=== PATIENT | female | born 1985 | race Hispanic/Latino ===

== ENCOUNTER 2024-05-21 01:42 | Inpatient (IN) | payer OTHER ==
--- OUTSIDE RECORDS SUMMARY | 2024-05-21 01:46 | XMS REPORT | Continuity of Care Document ---
Author Name Unknown Address [address] [facility] [address] [place] [address] [facility] Address [address] [facility] [address] [place] [address] Care Team Providers Care Drywall Foreman Name Role Phone DOMINGUEZ QUESADA Primary Care Physician Unavailab NEREIDA Alonzo Attending Clinician Unavailable NEREIDA SHOOK Attending Clinician Unavailable BROOKLYN SANDERS Attending Clinician Unavailable Nereida Shook MD Attending Clinician [phone] Attending Clinician Unavailable BLANCA BAUTISTA Attending Clinician Unava ilwilfredo GC_SWHAOMC_Black_D Attending Clinician Unavailab DR DOMINGUEZ Garcia Attending Clinician Unavailab pablo [phone] Attending Clinician Unavailable NIKKI BRIGGS Attending Clinician Unavailable Kathy Mandel Attending Clinician [phone] Nikki Madrigal Attending Clinician [phone] Doctor Unassigned, [facility] Attending Clinician U ISIDRO Moreno Attending Clinician DURAN Krishna Attending Clinician Unavailab shah GC_SWHAOMC_Black_D Admitting Clinician DR DOMINGUEZ Velez Admitting Clinician Awa shah Payers Payer Name Policy Type Policy Number Effective Date Expirati on Date Source CIGNA II [id number] 2017 00:00:00 BLUE ESSENTIALS [id number] 2019 00:00[place] [id number] DE[place]EN[place] 2 [id number] 2022 00:00:00 [facility] [id number] 2023 00:00:00 [facility] [id number] 2021 00:00:00 [employer] [id number] Problems Condition Name Condition Details Condition Category Status Onset Date Resolution Date Last Treatment Date Treating Clinician Comments Source Endometrio sis Endometrio sis Disease Active 07-05 00:00: 00 Toyin Seybold - Externa l Allergic rhinitis Allergic rhinitis Disease Active 07-05 00:00: 00 Toyin Seybold - Externa l Migraine Migraine Disease Active 07-05 00:00: 00 Toyin Seybold - Externa l Prediabete s Prediabete s Disease Active 07-05 00:00: 00 Toyin Seybold - Externa l Prediabete s Prediabete s Disease Active 08-13 00:00: 00 [facility] Obesity Obesity Disease Active 08-13 00:00: 00 [facility] Multiparit y Multiparit y Disease Resolve d 2014-04 00:00: 00 2024-01-26 00:00:00 2024-01-26 14:57:11 [facility] Admission for sterilizat ion Admission for sterilizat ion Disease Resolve d 2014-04 00:00: 00 2024-01-26 00:00:00 2024-01-26 15:07:59 [facility] Menorrhagi a with regular cycle Menorrhagi a with regular cycle Disease Resolve d 2014-04 00:00: 00 2024-01-26 00:00:00 2024-01-26 14:57:11 [facility] Abnormal thyroid function test Abnormal thyroid function test Disease Resolve d 08-13 00:00: 00 2024-01-26 00:00:00 2024-01-26 14:57:11 [facility] Allergies, Adverse Reactions, Alerts Allergy Name Allergy Type Status Severity Reaction(s) Onset Date Inactive Date Treating Clinician Comments Source NO KNOWN ALLERGIE S Drug Class Active [facility] Social History Social Habit Start Date Stop Date Quantity Comments Source [facility] to SARS-CoV-2 (event) Not sure [facility] Alcoholic beverage intake 2024-01-26 00:00:00 2024-01-26 00:00:00 0 /d [facility] History of Social function 2024-01-26 00:00:00 2024-01-26 00:00:00 [facility] Alcohol intake 2023-07-06 00:00:00 2023-07-06 00:00:00 Current drinker of alcohol (finding) Toyin Diaz - External Education - What is the highest level of school you have completed or the highest degree you have received? 2023-07-06 00:00:00 2023-07-06 00:00:00 Bachelor's degree (e.g., BA, AB, BS) Toyin Fletcher External Alcohol Comment 2023-07-06 00:00:00 2023-07-06 00:00:00 socially Toyin Turner Tobacco use and exposure 2015-03-24 00:00:00 2015-03-24 00:00:00 Smokeless tobacco non-user [facility] Sex Assigned At 1985 00:00:00 1985 00:00:00 Toyin Turner Smoking Status Start Date Stop Date Source Never smoked tobacco [facility] Medications Ordered Medication Name Filled Medication Name Start Date Stop Date Current Medication? Ordering Clinician Indication Dosage Frequency Signature (SIG) Comments Components Source BLISOVI FE 04/29, 28, 1 mg-20 mcg (21)/75 mg (7) tablet 2023-04 15:10: 00 01-25 00:00 :00 No TAKE 1 TABLET BY MOUTH EVERY DAY SKIP PLACEBO AND TAKE CONTINUOUS LY [facility] semaglutide (OZEMPIC) 0.25 mg or 0.5 mg(2 mg/1.5 mL) PnIj 2023-04 14:36: 12 Yes INJECT 0.25 MG UNDER THE SKIN EVERY WEEK FOR 4 WEEKS, THEN 0.5 MG EVERY WEEK FOR 4 WEEKS [facility] valACYclovi r 1 gram tablet 2023-04 14:36: 12 Yes TAKE 1 TABLET BY MOUTH THREE TIMES DAILY FOR 7 DAYS PRN SHINGLES [facility] metFORMIN (GLUCOPHAGE ) 1,000 mg tablet 2023-04 14:36: 01-25 00:00 :00 No 1000mg Take 1,000 mg by mouth 2 (two) times daily. [facility] norethindro ne-ethinyl estradiol-i saúl (MINASTRIN 24 FE) 1 mg-20 mcg(24) /75 mg (4) per tablet 2023-04 14:36: 01-25 00:00 :00 No 1{tbl} Take 1 Tab by mouth daily. [facility] fluticasone propionate 50 mcg/actuati on nasal spray 2023-04 14:36: 01-25 00:00 :00 No 1{spray } Use 1 [place] in each nostril. [facility] norethindro ne-e.estrad ioL-iron (BLISOVI FE ,) 1 mg-20 mcg (21)/75 mg (7) tablet 2023-04 00:00: 00 Yes [id number] 1{tbl} Take 1 tablet by mouth in the morning. TAKE 1 TABLET BY MOUTH EVERY DAY SKIP PLACEBO AND TAKE CONTINUOUS LY [facility] diclofenac 75 mg EC tablet 07-09 00:00: 00 Yes 75mg Take 1 tablet by mouth. [facility] Ibuprofen (MOTRIN OR) 07-05 16:23: 37 07-05 00:00 :00 No 800mg Take 800 mg by mouth as needed. Toyin evans Bupropion HCL XL 150 MG OR TB24 07-05 07:41: 56 07-05 00:00 :00 No TAKE ONE TABLET BY MOUTH DAILY X 4 WEEKE THEN START THE 300MG Toyin evans Semaglutide -WEGOVY-Shree ght Management 0.25 MG/0.5ML Subcutaneou s Solution Auto-inject or 07-05 00:00: 00 Yes [id number] 104 .25mg Inject 0.25 mg into the skin once a week. Toyin evans Diclofenac Sodium 75 MG oral Tablet Delayed Response 07-05 00:00: 00 Yes [id number] 75mg Q.5D Take 1 tablet (75 mg total) by mouth 2 times daily as needed (pain). Toyin evans Tirzepatide -Weight Management (Zepbound) 2.5 MG/0.5ML subcutaneou s Solution Auto-inject or 05-31 00:00: 00 07-05 00:00 :00 No [id number] 2.5mg Inject 0.5 mL (2.5 mg total) into the skin once a week. Toyin evans OZEMPIC (0.25 or 0.5 mg/dose) 2 mg/3 mL SQ Solution Pen-Injecto r 05-30 16:29: 39 05-30 00:00 :00 No INJECT 0.25 MG UNDER THE SKIN EVERY WEEK FOR 4 WEEKS, THEN 0.5 MG EVERY WEEK FOR 4 WEEKS Toyin evans Ibuprofen (MOTRIN OR) 05-30 16:10: 36 Yes 800mg Take 800 mg by mouth as needed. Toyin evans FLUTICASONE PROPIONATE, NASAL, 50 MCG/ACT nasal Suspension 05-30 16:09: 26 Yes 50ug 1 spray (50 mcg total) by nasal route as needed. Toyin evans Bupropion HCL XL 150 MG OR TB24 05-30 16:09: 26 Yes TAKE ONE TABLET BY MOUTH DAILY X 4 WEEKE THEN START THE 300MG Toyin evans Valacyclovi r HCl 1 g oral Tablet 05-30 16:09: 26 Yes TAKE 1 TABLET BY MOUTH THREE TIMES DAILY FOR 7 DAYS PRN SHINGLES Toyin evans Tirzepatide -Weight Management (Zepbound) 2.5 MG/0.5ML subcutaneou s Solution Auto-inject or 05-30 00:00: 00 Yes [id number] 2.5mg Inject 0.5 mL (2.5 mg total) into the skin once a week. Toyin evans Ibuprofen (MOTRIN) 800 MG oral Tablet 05-30 00:00: 00 Yes [id number] 800mg Q.25D Take 1 tablet (800 mg total) by mouth every 6 hours as needed for pain. Toyin evans Semaglutide -Weight Management (Wegovy) 0.25 MG/0.5ML subcutaneou s Solution Auto-inject or 05-30 00:00: 00 05-30 00:00 :00 No [id number] .25mg Inject 0.25 mg into the skin once a week. Toyin evans Blisovi FE 04/29 1-20 MG-MCG oral Tablet 2022-04 00:00: 00 Yes TAKE 1 TABLET BY MOUTH EVERY DAY SKIP PLACEBO AND TAKE CONTINUOUS LY Toyin evans valACYclovi r 1 gram tablet 07-17 00:00: 00 07-17 00:00 :00 No [id number] 1g Take 1 tablet by mouth 3 (three) times daily for 7 days. [facility] gabapentin 100 mg capsule 07-17 00:00: 00 07-17 00:00 :00 No [id number] 100mg Take 1 capsule by mouth 3 (three) times daily for 7 days. [facility] WEGOVY 2.4 mg/0.75 mL PnIj SC injection 06-29 00:00: 00 01-25 00:00 :00 No INJECT 2.4 MG SUBQ ONCE WEEEKLY [facility] elagolix (ORILISSA) 200 mg Tab 6 00:00: 00 01-25 00:00 :00 No 1 tablet [facility] metFORMIN (GLUCOPHAGE ) 1,000 mg tablet 05-07 19:06: 11 Yes 1000mg Take 1,000 mg by mouth 2 (two) times daily. [facility] norethindro ne-ethinyl estradiol-i saúl (MINASTRIN 24 FE) 1 mg-20 mcg(24) /75 mg (4) per tablet 05-07 19:06: 11 Yes 1{tbl} Take 1 Tab by mouth daily. [facility] fluticasone (FLONASE) 50 mcg/actuati on nasal spray 05-07 19:06: 11 Yes 1{spray } Use 1 [place] in each nostril as needed. [facility] cephALEXin (KEFLEX) 500 mg capsule 05-07 00:00: 00 01-25 00:00 :00 No [id number] 500mg Take 1 capsule by mouth 4 (four) times daily. [facility] buPROPion XL 300 mg 24 hr tablet 05-01 00:00: 00 01-25 00:00 :00 No [facility] ketorolac 10 mg tablet 10-29 00:00: 00 01-25 00:00 :00 No 10mg Take 1 tablet by mouth every 6 (six) hours as needed for Pain (scale 7-10). [facility] ketorolac 10 mg tablet 2- 00:00: 00 01-25 00:00 :00 No 10mg Take 1 tablet by mouth every 6 (six) hours as needed for Pain (scale 7-10). [facility] ondansetron (ZOFRAN, SHIELAI DE,) 4 mg tablet 2-07 00:00: 00 01-25 00:00 :00 No 4mg Take 1 tablet by mouth every 8 (eight) hours as needed for Nausea and Vomiting (N/V). [facility] pantoprazol e (PROTONIX) 40 mg EC tablet 2-07 00:00: 00 01-25 00:00 :00 No 40mg Take 1 tablet by mouth daily. [facility] NUVARING 0.12-0.015 mg/24 hr vaginal insert 08-03 00:00: 00 01-25 00:00 :00 No [facility] ibuprofen (MOTRIN) 800 mg tablet 08-02 00:00: 00 01-25 00:00 :00 No [facility] methocarbam ol (ROBAXIN) 500 mg tablet 08-02 00:00: 00 01-25 00:00 :00 No [facility] Junel Fe 24 1 mg-20 mcg (24)/75 mg (4) tablet Take 1 tablet every day by oral route. Septemberl Fe 24 1 mg-20 mcg (24)/75 mg (4) tablet Take 1 tablet every day by oral route. No 1 Q1D Junel Fe 24 1 mg-20 mcg (24)/75 mg (4) tablet Take 1 tablet every day by oral route. [facility] Immunizations Ordered Immunization Name Filled Immunization Name Date Status Comments Source Influenza Virus Vaccine, No Preserv, age 6 months and up Unknown Completed Toyin santorobold - External MMR- Measles, Mumps, Rubella Unknown Completed Toyin Granadosold - External Td(adult) unspecified formulation Unknown Completed Toyin Granadosold - External Tdap- (Boostrix, Adacel) Unknown Completed Toyin Granadosold - External Varicella Vaccine Unknown Completed Bhavin Granadosold - External Influenza Virus Vaccine, No Preserv, age 6 months and up Unknown Completed Toyin Mullins eybold - External MMR- Measles, Mumps, Rubella Unknown Completed Toyin Granadosold - External Td(adult) unspecified formulation Unknown Completed Toyin Pottsybold - External Tdap- (Boostrix, Adacel) Unknown Completed Toyin Granadosold - External Varicella Vaccine Unknown Completed Bhavin pacheco Seybold - External Vital Signs Vital Name Observation Time Observation Value Comments S brandon Systolic blood pressure 2024-01-26 19:42:00 131 mm[Hg] [facility] Diastolic blood pressure 2024-01-26 19:42:00 83 mm[Hg] [facility] Heart rate 2024-01-26 19:42:00 84 /min [facility] Body temperature 2024-01-26 19:42:00 36.83 Caryl [facility] Respiratory rate 2024-01-26 19:42:00 18 /min [facility] Body height 2024-01-26 19:42:00 160 cm [facility] Body weight 2024-01-26 19:42:00 119.659 kg [facility] BMI 2024-01-26 19:42:00 46.73 kg/m2 [facility] Body temperature 2023-07-06 21:04:00 36.94 Caryl Toyin Seybold - External Respiratory rate 2023-07-06 21:04:00 20 /min Toyin Seybold - External Body height 2023-07-06 21:04:00 160 cm Racheal ey Seybold - External Body weight 2023-07-06 21:04:00 124.286 kg Racheal ey Seybold - External BMI 2023-07-06 21:04:00 48.54 kg/m2 Racheal ey Seybold - External Oxygen saturation in Arterial blood by Pulse oximetry 2023-07-06 21:04:00 100 /min Toyin meaghano ld - External Systolic blood pressure 2023-05-30 22:02:00 116 mm[Hg] Toyin Seybo ld - External Diastolic blood pressure 2023-05-30 22:02:00 74 mm[Hg] Toyin Seybo ld - External Heart rate 2023-05-30 22:02:00 78 /min Neil y Seybold - External Body temperature 2023-05-30 22:02:00 36.89 Caryl Toyin Seybold - External Respiratory rate 2023-05-30 22:02:00 18 /min Toyin Seybold - External Body height 2023-05-30 22:02:00 160 cm Racheal ey Seybold - External Body weight 2023-05-30 22:02:00 122.641 kg Racheal ey Seybold - External BMI 2023-05-30 22:02:00 47.89 kg/m2 Racheal santoro Seybold - External Oxygen saturation in Arterial blood by Pulse oximetry 2023-05-30 22:02:00 99 /min Toyin Nicolas ld - External BP Diastolic 2022-04-07 00:00:00 74 mm[Hg] [facility] Height 2022-04-07 00:00:00 63 [in_i] [facility] BMI (Body Mass Index) 2022-04-07 00:00:00 46.9 kg/m2 [facility] BP Systolic 2022-04-07 00:00:00 130 mm[Hg] [facility] Body Weight 2022-04-07 00:00:00 265 [lb_av] [facility] Systolic blood pressure 2021-07-17 15:25:00 102 mm[Hg] [facility] Diastolic blood pressure 2021-07-17 15:25:00 71 mm[Hg] [facility] Heart rate 2021-07-17 15:25:00 80 /min [facility] Body temperature 2021-07-17 15:25:00 36.78 Caryl [facility] Respiratory rate 2021-07-17 15:25:00 18 /min [facility] Body height 2021-07-17 15:25:00 160 cm [facility] Body weight 2021-07-17 15:25:00 110.179 kg [facility] BMI 2021-07-17 15:25:00 43.03 kg/m2 [facility] Oxygen saturation in Arterial blood by Pulse oximetry 2021-07-17 15:25:00 99 /min [facility] Procedures Procedure Date / Time Performed Performing Clinicia n Source ASSIGNMENT OF BENEFITS 2021-07-17 15:11:22 Docto r Unassigned, [facility] Ligation of Bilateral Fallopian Tubes 2014-04-10 00:00:00 [facility] Medical Caesarean Section 2011-04-10 00:00:00 [facility] Plan of Care Planned Activity Planned Date Details Comments Source Diagnostic Test Pending 2022-04-07 00:00:00 Weight of 24 hour Specimen [code = 3153-4] [facility] Diagnostic Test Pending 2022-04-07 00:00:00 Cytomegalovirus Ab [Titer] in Serum or Plasma by Latex agglutination [code = 5121-9] [facility] Encounters Start Date/Time End Date/Time Encounter Type Admission Type Attending [facility] Care Facility Care Department Encounter ID Source 2021-02-07 07:58:07 Emergency [facility] [id number] [facility] 2024-04-07 00:00:00 2024-04-07 00:00:00 Outpatient BROOKLYN SANDERS [id number] [facility] 2024-01-27 00:00:00 2024-01-27 00:00:00 Outpatient BROOKLYN SANDERS [id number] [facility] 2024-01-26 15:00:00 2024-01-26 15:08:53 Outpatient R NEREIDA SHOOK VIVIAN [facility] [id number] [facility] 2024-01-26 15:00:00 2024-01-26 15:08:53 Office Visit Nereida Shook [facility] [id number] [facility] 2023-12-30 00:00:00 2023-12-30 00:00:00 Outpatient BROOKLYN SANDERS [id number] [facility] 2023-11-01 00:00:00 2023-11-01 00:00:00 Outpatient BROOKLYN SANDERS [id number] [facility] 2023-10-06 09:45:00 2023-10-06 09:45:00 Outpatient BROOKLYN SANDERS [id number] [facility] 2023-08-31 00:00:00 2023-08-31 00:00:00 Outpatient BROOKLYN SANDERS [id number] [facility] 2023-07-29 00:00:00 2023-07-29 00:00:00 Outpatient BROOKLYN SANDERSSEY [id number] [facility] 2023-07-07 00:00:00 2023-07-07 00:00:00 Outpatient BROOKLYN SANDERS [id number] [facility] 2023-07-07 00:00:00 2023-07-07 00:00:00 Outpatient BROOKLYN SANDERS [id number] [facility] 2023-07-06 16:15:00 2023-07-06 16:15:00 Outpatient BROOKLYN SANDERS TOYIN [id number] [facility] 2023-06-11 00:00:00 2023-06-11 00:00:00 Outpatient BROOKLYN SANDERS TOYIN [id number] [facility] 2023-06-02 00:00:00 2023-06-02 00:00:00 Outpatient BROOKLYN SANDERS TOYIN [id number] [facility] 2023-06-01 08:15:00 2023-06-01 08:15:00 Outpatient KATE THAYERSEY [id number] [facility] 2023-05-30 16:00:00 2023-05-30 16:00:00 Outpatient MICHELEBLANCAMELANIE MUSE [id number] [facility] 2022-04-07 00:00:00 2022-04-07 00:00:00 Outpatient GC_[facility]_ Black_D [facility] [id number] [facility] 2022-04-07 00:00:00 2022-04-07 00:00:00 Outpatient GC_SWHAOMC_ Black_D [facility] PRIV [id number] [facility] 2022-04-07 00:00:00 2022-04-07 00:00:00 Fatemeh Terry MD: [place] [address] , Ph. [facility] - GC_SWHAOMC_ [facility] [id number] [facility] 2022-04-06 00:00:00 2022-04-06 00:00:00 Outpatient GC_SWHAOMC_ Black_D PRIV PRIV [id number] [facility] 2022-02-18 00:00:00 2022-02-18 00:00:00 Outpatient GC_SWH[facility]OMC_ Black_D PRIV PRIV [id number] [facility] 2021-07-23 10:54:00 2021-07-23 10:54:00 Outpatient Zuly GOMEZDOMINGUEZ MOSER [id number] [facility] [id number] [facility] 2021-07-17 10:20:00 2021-07-17 10:55:59 Outpatient NIKKI GARAY [facility] [id number] [facility] 2021-07-17 10:20:00 2021-07-17 10:55:59 Urgent Care Kathy Torres Rania [facility] [id number] [facility] 2021-07-17 00:00:00 2021-07-17 00:00:00 Orders Only Doctor Unassigned, [facility] [id number] [facility] 2020-11-13 16:40:00 2020-11-13 16:40:00 Outpatient ISIDRO PRESCOTT [facility] [id number] [facility] 2020-05-07 19:00:00 2020-05-07 19:00:00 Outpatient R DURAN COLLADO [facility] [id number] [facility] Results Test Description Test Time Test Comments Results Resul t Comments Source SCR MAMM BILATERAL HARPREET CAD DIGITAL 2021-05-17 10:08:08 Name: Minoo : 1985 Sex: F - SCR MAMM BILATERAL HARPREET CAD DIGITALBILATERAL FIRST EVER DIGITAL SCREENING MAMMOGRAM 3D/2D WITH CAD: 05/12/2021LINICAL: Asymptomatic. Digital breast tomosynthesis was performed in addition to routine CC and MLO views. Current mammographic images were evaluated by [employer] CAD (computer-aided detection) software. No prior exams were available for comparison. The tissue of both breasts is predominantly fatty. There are benign calcifications in the left breast. No suspicious mass, architectural distortion, malignant type calcification, or lymph node abnormality detected. IMPRESSION: BENIGNThere is no mammographic evidence of malignancy. Resume annual screening mammography in one year. Ba Oliveira M.D. et/penrad:05/17/2021 10:08:08 Systems Engineering Manager: Kya Licea MM, [facility] Mammographyletter sent: BIRADS 1-2 Normal Mammogram BI-RADS: 2 Benign
[2024-05-21] MEDS ORDERED: ONDANSETRON 4 MG/2 ML VIAL ONE (02:27)
[2024-05-21] MEDS ORDERED: MORPHINE 4 MG/ML SYR ONE (02:27)
[2024-05-21] MEDS ORDERED: NA CHLORIDE 0.9% 1,000 ML ONE ×2 (02:27→06:23)
[2024-05-21 02:32] LABS: Absolute Basophils 0.1 K/uL (0-0.5); Absolute Eosinophils 0.1 K/uL (0-0.5); Absolute Monocytes 0.6 K/uL (0.1-1.3); Basophils % 0.5 % (0-1.3); Eosinophils % 0.6 % (0-4.4); Hemoglobin 12.9 g/dL (12.0-15.0); Lymphocytes % 13.4 % (15.3-44.8); MCH 27.2 pg (27.0-35.0); MCV 82.5 fL (80-100); MPV 8.6 fL (7.6-11.3); Monocytes % 4.2 % (3.3-12.3); Neutrophils % 81.3 % (41.7-73.7); Nucleated Red Blood Cells % 0.1 % (0-0); Platelets 330 thou/uL (152-406); RBC Red Blood Cell Count 4.73 M/uL (3.86-4.86); Red Cell Distribution Width 14.1 % (12.1-15.2)
[2024-05-21 02:44] LABS: ALT/SGPT 19 U/L (13-56); Albumin 3.6 g/dL (3.4-5.0); Albumin/Globulin Ratio 0.9 (1.1-1.8); Alkaline Phosphatase 72 U/L (45-117); Anion Gap 11.2 mEq/L (5.0-15.0); BUN Blood Urea Nitrogen 19 mg/dL (7-18); Bicarbonate 23 mEq/L (21-32); Bilirubin Total 0.7 mg/dL (0.2-1.0); Globulin 3.9 g/dL (2.3-3.5); Glomerular Filtration Rate 96 ml/min (=/>90); Glucose Level 142 mg/dL (74-106); Lipase 29 U/L (13-75); Potassium 4.2 mEq/L (3.5-5.1); Protein, Total 7.5 g/dL (6.4-8.2); Sodium Level 137 mEq/L (136-145)
[2024-05-21 02:45] LABS: AST/SGOT < 10 U/L (15-37)
[2024-05-21] MEDS ORDERED: FENTANYL CITR 100 MCG/2 ML ONE (03:09)
[2024-05-21] MEDS ORDERED: METOCLOPRAMIDE 10 MG/2mL INJ ONE (03:09)
--- NOTE | 2024-05-21 04:29 | RAD REPORT ---
CLINICAL HISTORY: RUQ/epigastric abdominal pain. COMPARISON: None. TECHNIQUE: US ABDOMEN LIMITED 05/21/2024 2:08 AM APARTMENT LEASING CONSULTANT FINDINGS: Liver is slightly echogenic. Portal vein is patent. Common bile duct measures 4.5 mm. Gallbladder is diffusely filled with gallstones. There is a reported positive sonographic Grace's sign. IMPRESSION: Extensive cholelithiasis with a positive sonographic Grace's sign. Electronically signed by: Laci Quiroz MD 05/21/2024 04:25 AM APARTMENT LEASING CONSULTANT RP Due to temporary technical issues with the PACS/Skedo scribe reporting system, reports are being signed by the in-house radiologist without review as a courtesy to ensure prompt reporting the interpreting radiologist is fully responsible for the content of the report. Transcribed Date/Time: 05/21/2024 4:29 AM
--- NOTE | 2024-05-21 04:31 | ER ---
Nurse's Notes [facility] Name: Minoo Bob Age: 39 yrs Sex: Female : 1985 Arrival Date: 05/21/2024 Time: 01:42 Bed 8 Private MD: Diagnosis: Cholelithiasis;Possible developing small bowel obstruction Presentation: 05/21 02:13 Chief complaint: Patient states: C/ O EPIGASTRIC PAIN, NAUSEA AND VOMITING. THE SECOND br2 TIME SHE THREW UP THERE WAS BLOOD. PT STATES THAT SHE HAS GALLSTONES BUT HASN'T HAD A FLARE UP IN A COUPLE YEARS. Coronavirus screen: Client denies travel out of the [place] in the last 14 days. Ebola Screen: Patient denies travel to an Ebola-affected area in the 21 days before illness onset. Initial Sepsis Screen: Does the patient meet any 2 criteria? No. Patient's initial sepsis screen is negative. Does the patient have a suspected source of infection? No. Patient's initial sepsis screen is negative. Risk Assessment: Do you want to hurt yourself or someone else? Patient reports no desire to harm self or others. Onset of symptoms was May 20, 2024 at 23:00. 02:13 Method Of Arrival: Ambulatory br2 02:13 Acuity: RENAE 3 br2 Historical: - Allergies: 02:17 No Known Allergies; br2 - Immunization history:: Adult Immunizations up to date. - Infectious Disease History:: Denies. - Social history:: Smoking status: Patient denies any tobacco usage or history of. Screenin:[address] [facility] ED Fall Risk Assessment (Adult) History of falling in the last 3 months, lg3 including since admission No falls in past 3 months (0 pts) Confusion or Disorientation No (0 pts) Intoxicated or Sedated No (0 pts) Impaired Gait No (0 pts) Mobility Assist Device Used No (0 pt) Altered Elimination No (0 pt) Score/Fall Risk Level 0 - 2 = Low Risk Oriented to surroundings, Maintained a safe environment, Educated pt \T\ family on fall prevention, incl call for assistance when getting out of bed, Assessed \T\ reinforced patient's understanding of fall precautions. Abuse screen: Denies threats or abuse. Denies injuries from another. Nutritional screening: No deficits noted. Tuberculosis screening: No symptoms or risk factors identified. Assessment: 02:33 General: Appears in no apparent distress. uncomfortable, Behavior is calm, cooperative. lg3 Pain: Complains of pain in epigastric area Pain radiates to back. Neuro: No deficits noted. Abad Agitation-Sedation Scale (RASS): 0 - Alert and Calm Level of Consciousness is awake, alert, obeys commands, Oriented to person, place, time, situation. Cardiovascular: No deficits noted. Denies chest pain, shortness of breath, Capillary refill < 3 seconds Clubbing of nail beds is absent JVD is absent Patient's skin is warm and dry. Respiratory: No deficits noted. Airway is patent Respiratory effort is even, unlabored, Respiratory pattern is regular, symmetrical. GI: Abdomen is round non-distended, obese, Bowel sounds present X 4 quads. Abd is soft X 4 quads Abdomen is tender to palpation in right upper quadrant and left upper quadrant Reports upper abdominal pain, epigastric pain, nausea, vomiting. : No signs and/or symptoms were reported regarding the genitourinary system. EENT: No deficits noted. No signs and/or symptoms were reported regarding the EENT system. Derm: No deficits noted. No signs and/or symptoms reported regarding the dermatologic system. Skin is intact, is healthy with good turgor, Skin is dry, Skin is normal, Skin temperature is warm. Musculoskeletal: No deficits noted. No signs and/or symptoms reported regarding the musculoskeletal system. Circulation, motion, and sensation intact. Range of motion: intact in all extremities. 03:13 Reassessment: Patient appears in no apparent distress at this time. No changes from lg3 previously documented assessment. Patient and/or family updated on plan of care and expected duration. Pain level reassessed. Patient is alert, oriented x 3, equal unlabored respirations, skin warm/dry/pink. Patient states symptoms have not improved. 04:25 General: patient reports 10/10 abdominal pain with no relief from previous medications lg3 administered. provider notified. no new orders recieved at this time . 04:49 Reassessment: Patient appears in no apparent distress at this time. No changes from lg3 previously documented assessment. Patient and/or family updated on plan of care and expected duration. Pain level reassessed. Patient is alert, oriented x 3, equal unlabored respirations, skin warm/dry/pink. 05:09 GI: Pt is actively vomiting bile, clear fluid. lg3 Vital Signs: 02:13 BP 150 / 80; Pulse 96; Resp 18; Temp 97.2(TE); Pulse Ox 100% on R/A; Weight 120.2 kg; br2 Height 5 ft. 3 in. ; Pain 10/10; 03:13 BP 151 / 87; Pulse 79; Resp 17 S; Pulse Ox 98% on R/A; lg3 04:48 BP 142 / 82; Pulse 74; Resp 16 S; Pulse Ox 99% on R/A; lg3 02:13 Body Mass Index 46.94 (120.20 kg, 160.02 cm) br2 02:13 Pain Scale: Adult br2 ED Course: 01:47 Patient arrived in ED. gm2 01:50 Terrell Zamora MD is Attending Physician. ec2 02:16 Triage completed. br2 02:17 Arm band placed on right wrist. br2 02:19 Inserted saline lock: 20 gauge in right antecubital area, using aseptic technique. oe Blood collected. Flushed with 10 mL NS. 02:20 CBC with Diff Sent. oe 02:20 CMP Sent. oe 02:20 Lipase Sent. oe 02:20 Test, Serum Sent. oe 02:32 Jennifer Kaur, RN is Primary Nurse. lg3 02:33 Patient has correct armband on for positive identification. Placed in gown. Bed in low lg3 position. Call light in reach. Side rails up X 1. Client placed on continuous cardiac and pulse oximetry monitoring. NIBP monitoring applied. Door closed. Noise minimized. Warm blanket given. Pillow given. 02:33 Patient maintains SpO2 saturation greater than 95% on room air. lg3 02:49 Abdomen Limited US In Process Unspecified. EDMS 02:59 CT Abd/Pelvis - IV Contrast Only In Process Unspecified. EDMS 04:31 Merrill Sherman MD is Hospitalizing Provider. ec2 Administered Medications: 02:35 Drug: Ondansetron IVP 4 mg IVP once; over 2 minutes Route: IVP; Site: right antecubital;lg3 03:13 Follow up: Response: No adverse reaction; No change in condition; Nausea unchanged lg3 02:35 Drug: morphine IVP or IV 4 mg IVP once over 4 mins Route: IVP; Infused Over: 4 mins; lg3 Site: right antecubital; 03:14 Follow up: Response: No adverse reaction; No change in condition; Pain is unchanged, lg3 physician notified 02:35 Drug: NS 0.9% IV 1000 ml IV at 1 bolus Per protocol; to be given as a bolus over 60 lg3 minutes Route: IV; Rate: 1 bolus; Site: right antecubital; 05:18 Follow up: Response: No adverse reaction; IV Status: Completed infusion; IV Intake: lg3 1000ml 03:14 Drug: fentaNYL (PF) IVP 100 mcg IVP once Route: IVP; Site: right antecubital; lg3 04:27 Follow up: Response: No adverse reaction; No change in condition; Pain is unchanged, lg3 physician notified 03:14 Drug: metoCLOPramide IVP 10 mg IVP once; over 1 to 2 minutes Route: IVP; Site: right lg3 antecubital; 04:28 Follow up: Response: No adverse reaction lg3 05:09 Drug: Ketamine IVP 10 mg IVP once Route: IVP; Site: right antecubital; lg3 06:32 Follow up: Response: No adverse reaction; Marked relief of symptoms lg3 05:09 Drug: Piperacillin-Tazobactam IVPB 3.375 grams IVPB once over 60 mins; (mix in NS 100 lg3 mL) Route: IVPB; Infused Over: 60 mins; Site: right antecubital; 06:32 Follow up: Response: No adverse reaction; IV Status: Completed infusion; IV Intake: lg3 100ml 05:18 Drug: Droperidol IVP 1.25 mg IVP once Route: IVP; Site: right antecubital; lg3 06:32 Follow up: Response: No adverse reaction lg3 Medication: 02:33 VIS not applicable for this client. lg3 Intake: 05:18 IV: 1000ml; Total: 1000ml. lg3 06:32 IV: 100ml; Total: 1100ml. lg3 Outcome: 04:31 Decision to Hospitalize by Provider. ec2 08:00 Patient left the ED. ko1 Signatures: Dispatcher [employer] EDFroy Maldonado Lacie, RN RN lg3 Zaina Fonseca RN RN ko1 Terrell Zamora MD MD ec2 Dottie Camacho gm2 Esther Arnold, RN RN br2
--- NOTE | 2024-05-21 04:31 | EDPHYS ---
Physician Documentation [facility] Name: Minoo Bob Age: 39 yrs Sex: Female : 1985 Arrival Date: 05/21/2024 Time: 01:42 Bed 8 Private MD: ED Physician Terrell Zamora HPI: 05/21 02:08 This 39 yrs old Female presents to ER via Unassigned with complaints of ec2 VOMITING BLOOD, Abdominal Pain. 02:08 Patient arrives today for evaluation of upper abdominal pain along with hematemesis. ec2 Patient reports that she was feeling nauseous, subsequently vomited once and on her second emesis she had noted blood tinge in the emesis. Patient reports history of cholelithiasis. Previous abdominal surgeries include tubal ligation. Reports no chronic medical problems aside from endometriosis. Historical: - Allergies: 02:17 No Known Allergies; br2 - Immunization history:: Adult Immunizations up to date. - Infectious Disease History:: Denies. - Social history:: Smoking status: Patient denies any tobacco usage or history of. ROS: 02:09 Constitutional: as per hpi ec2 Exam: 02:09 Constitutional: GEN: NAD Head: atraumatic Eyes: EOMI Ears: External ears are ec2 normal. CV: regular rate LUNGS: no respiratory distress ABD: non-distended, soft, generally tender, not guarding, not rigid SKIN: no evidence of rashes MSK: no evidence of trauma Vital Signs: 02:13 BP 150 / 80; Pulse 96; Resp 18; Temp 97.2(TE); Pulse Ox 100% on R/A; Weight 120.2 kg; br2 Height 5 ft. 3 in. ; Pain 10/10; 03:13 BP 151 / 87; Pulse 79; Resp 17 S; Pulse Ox 98% on R/A; lg3 04:48 BP 142 / 82; Pulse 74; Resp 16 S; Pulse Ox 99% on R/A; lg3 02:13 Body Mass Index 46.94 (120.20 kg, 160.02 cm) br2 02:13 Pain Scale: Adult br2 MDM: 02:01 Medical Screening Exam initiated ec2 02:09 Data reviewed: vital signs, nurses notes. ED course: Patient arrives today for ec2 evaluation of upper abdominal pain and right upper quadrant pain. Examination yields abdominal findings as above. Will obtain lab work, urine studies, CT imaging.. 04:30 ED course: Ultrasound shows extensive cholelithiasis with positive sonographic Grace ec2 sign. Patient with persistent pain, will give antibiotics, admit for general surgery consultation. CT imaging shows "possible developing small bowel obstruction ". Also surgical process which can be managed with consultation with general surgery.. 04:34 ED course: I consulted general surgery who will evaluate the patient. Discussed case ec2 with hospitalist will admit the patient.. 04:49 ED course: Additionally in regards to patient's bout of hematemesis, suspect ec2 Phuong-Hightower tear. Regardless GI available for consultation if inpatient team deems fit. 05/21 02:08 Order name: CBC with Diff; Complete Time: 02:42 ec2 05/21 02:08 Order name: CMP; Complete Time: 02:54 ec2 05/21 02:08 Order name: Lipase; Complete Time: 02:54 2 05/21 02:08 Order name: Urinalysis w/ reflexes 2 05/21 02:08 Order name: Test, Serum; Complete Time: 02:54 2 05/21 04:30 Order name: Blood Culture Adult (2) ec2 05/21 04:30 Order name: Lactate w/ 2H reflex if indic. ec2 05/21 05:10 Order name: Urinalysis w/ reflexes EDHI 05/21 05:10 Order name: CBC with Automated Diff EDHI 05/21 05:10 Order name: CBC with Automated Diff EDHI 05/21 05:10 Order name: Comprehensive Metabolic Panel EDHI 05/21 05:10 Order name: Comprehensive Metabolic Panel EDHI 05/21 02:08 Order name: Abdomen Limited US ec2 05/21 02:08 Order name: CT Abd/Pelvis - IV Contrast Only ec2 05/21 05:10 Order name: CONS Physician Consult EDHI 05/21 02:08 Order name: IV Saline Lock; Complete Time: 02:20 ec2 05/21 02:08 Order name: Labs collected and sent; Complete Time: 02:20 2 05/21 04:31 Order name: NPO; Complete Time: 04:50 ec2 05/21 05:09 Order name: Labs - recollect needed: BLOOD CULTURE RECOLLECT; Complete Time: 05:19 kmf Administered Medications: 02:35 Drug: Ondansetron IVP 4 mg IVP once; over 2 minutes Route: IVP; Site: right antecubital;lg3 03:13 Follow up: Response: No adverse reaction; No change in condition; Nausea unchanged lg3 02:35 Drug: morphine IVP or IV 4 mg IVP once over 4 mins Route: IVP; Infused Over: 4 mins; lg3 Site: right antecubital; 03:14 Follow up: Response: No adverse reaction; No change in condition; Pain is unchanged, lg3 physician notified 02:35 Drug: NS 0.9% IV 1000 ml IV at 1 bolus Per protocol; to be given as a bolus over 60 lg3 minutes Route: IV; Rate: 1 bolus; Site: right antecubital; 05:18 Follow up: Response: No adverse reaction; IV Status: Completed infusion; IV Intake: lg3 1000ml 03:14 Drug: fentaNYL (PF) IVP 100 mcg IVP once Route: IVP; Site: right antecubital; lg3 04:27 Follow up: Response: No adverse reaction; No change in condition; Pain is unchanged, lg3 physician notified 03:14 Drug: metoCLOPramide IVP 10 mg IVP once; over 1 to 2 minutes Route: IVP; Site: right lg3 antecubital; 04:28 Follow up: Response: No adverse reaction lg3 05:09 Drug: Ketamine IVP 10 mg IVP once Route: IVP; Site: right antecubital; lg3 06:32 Follow up: Response: No adverse reaction; Marked relief of symptoms lg3 05:09 Drug: Piperacillin-Tazobactam IVPB 3.375 grams IVPB once over 60 mins; (mix in NS 100 lg3 mL) Route: IVPB; Infused Over: 60 mins; Site: right antecubital; 06:32 Follow up: Response: No adverse reaction; IV Status: Completed infusion; IV Intake: lg3 100ml 05:18 Drug: Droperidol IVP 1.25 mg IVP once Route: IVP; Site: right antecubital; lg3 06:32 Follow up: Response: No adverse reaction lg3 Disposition Summary: 05/21/24 04:31 Hospitalization Ordered Notes: Hospitalization Status: Inpatient Admission ec2 Provider: Merrill Sherman ec2 Location: Telemetry/MedSur (Inpatient) ec2 Condition: Stable ec2 Problem: new ec2 Symptoms: have improved ec2 Bed/Room Type: Standard ec2 Room Assignment: 418(05/21/24 07:49) Diagnosis - Cholelithiasis ec2 - Possible developing small bowel obstruction ec2 Forms: - Medication Reconciliation Form ec2 - SBAR form ec2 - Leadership Thank You Letter ec2 Signatures: Dispatcher [employer] Elvira Dove RN RN kl Williams, Irene, RN RN iw Jennifer Kaur RN RN 3 Terrell Zamora MD MD ec2 Toyin Bui [facility] Esther Arnold RN RN br2 Corrections: (The following items were deleted from the chart) 02:09 02:09 CBC+H.LAB.BRZ ordered. EDMS EDMS 02:09 02:09 COMPREHENSIVE METABOLIC PANEL+C.LAB.BRZ ordered. EDMS EDMS 02:09 02:09 LIPASE+C.LAB.BRZ ordered. EDMS EDMS 02:09 02:09 Urinalysis+U.LAB.BRZ ordered. EDMS EDMS 02:09 02:09 TEST, SERUM+SC.LAB.BRZ ordered. EDMS EDMS 02:24 02:09 Test, Urine+UC.LAB.BRZ ordered. EDMS EDMS 04:30 04:30 BLOOD CULTURE*+BA.LAB.BRZ ordered. EDMS EDMS 04:30 04:30 LACTATE+C.LAB.BRZ ordered. EDMS EDMS 04:50 04:49 ED course: Additionally in regards to patient's bout of hematemesis, suspect ec2 Phuong-Hightower tear.. ec2 06:28 04:31 ec2 kl 07:49 06:28 424 kl
[2024-05-21] MEDS ORDERED: KETAMINE HCL IN 0.9 % NACL 50 MG/5 ML SYRINGE IV ONE (05:00)
[2024-05-21] MEDS ORDERED: NA CHLORIDE 0.9% 100 ML ONE (05:00)
[2024-05-21] MEDS ORDERED: PIPERACIL/TAZO 3.375 GM VIAL IV ONE (05:01)
[2024-05-21] MEDS ORDERED: ONDANSETRON 4 MG/2 ML VIAL IV PRN (05:05)
--- NOTE | 2024-05-21 05:05 | P.HP ---
Certification for Inpatient Patient admitted to: Inpatient With expected LOS: >2 Midnights Practitioner: I am a practitioner with admitting privileges, knowledge of patient current condition, hospital course, and medical plan of care. Services: Services provided to patient in accordance with Admission requirements found in Title 42 Section 412.3 of the Code of Federal Regulations Patient History Date of Service: 05/21/24 Reason for admission: Abdominal pain History of Present Illness: 39 yrs old Female with no significant past medical history brought to ER with abdominal pain and nausea and vomiting associated with occasional bouts of hematemesis . Patient reports that she was feeling nauseous, subsequently vomited once and on her second emesis she had noted blood tinge in the emesis. Patient reports history of cholelithiasis. Denies any fever or chills. No chest pain or shortness of breath No sick contacts Patient was assessed in the ER and is admitted for further management of acute cholecystitis/cholelithiasis Home medications list reviewed: Yes - Past Medical/Surgical History Past Medical History: Reviewed- Non-Contributory Past Surgical History: Reviewed- Non-Contributory - Family History Family History: Reviewed- Non-Contributory - Social History Smoking Status: Never smoker Review of Systems 10-point ROS is otherwise unremarkable Physical Examination - Vital Signs Temperature: 97.8 F Blood Pressure: 132/68 Pulse: 78 Respirations: 18 Pulse Ox (%): 94 - Physical Exam General: Alert, In no apparent distress, Oriented x3, Obese HEENT: Atraumatic, Normocephalic Neck: Supple, No Thyromegaly Respiratory: Clear to auscultation bilaterally, Normal air movement Cardiovascular: Regular rate/rhythm, Normal S1 S2 Capillary refill: <2 Seconds Gastrointestinal: No ascites, No masses, Tenderness Musculoskeletal: No clubbing, No swelling Integumentary: No rashes, No breakdown Neurological: Normal speech, Normal strength at 5/5 x4 extr Lymphatics: No axilla or inguinal lymphadenopathy - Studies Laboratory Data (last 24 hrs) 05/21/24 05/21/24 02:15 02:15 WBC 14.70 H Hgb 12.9 Hct 39.0 Plt Count 330 Sodium 137 Potassium 4.2 BUN 19 H Creatinine 0.80 Glucose 142 H Total Bilirubin 0.7 AST < 10 L ALT 19 Alkaline Phosphatase 72 Lipase 29 Assessment and Plan - Plan Acute cholecystitis Ultrasound suggestive of cholelithiasis with Grace sign's N.p.o. IV hydration Surgery was consulted Started on IV antibiotic Hematemesis Possibly Phuong-Hightower Start on PPI GI consult if not better GI/DVT prophylaxis Advanced directive full code Discharge Plan: Home Plan to discharge in: 48 Hours - Advance Directives Does patient have a Living Will: No Does patient have a Durable POA for Healthcare: No - Code Status/Comfort Care Code Status: Full Code Time Spent Managing Pts Care (In Minutes): 48
[2024-05-21] MEDS ORDERED: MORPHINE 2 MG/ML SYR IV PRN (05:08)
[2024-05-21] MEDS ORDERED: HYDROCODONE/APAP 5/325 MG TAB PO PRN (05:08)
[2024-05-21] MEDS ORDERED: SODIUM CHLORIDE 0.9% 10ML INJ IV PRN (05:08)
[2024-05-21] MEDS: PIPER TAZO 3.375 GM in NA CHLORIDE 0.9% 100 ML IV SCH (05:09)
[2024-05-21] MEDS ORDERED: droPERidol 5 MG/2 ML VIAL ONE (05:10)
--- NOTE | 2024-05-21 05:17 | RAD REPORT ---
CLINICAL HISTORY: RUQ/epigastric abdominal pain. COMPARISON: None. TECHNIQUE: CTABDOMEN PELVIS WITH IV CONTRAST on 05/21/2024 2:08 AM PILLOW FILLER This exam was performed according to our departmental dose-optimization program, which includes autom ated exposure control, adjustment of the mA and/or kV according to patient size and/or use of iterative reconstruction techn ique. FINDINGS: Lower lungs are clear. Abdomen: The liver is normal in appearance. There is no biliary dilatation. Gallbladder contains mult iple gallstones. The pancreas and spleen are normal in appearance. Adrenal glands are normal. There is a 3 mm mid pole left renal c alculus. There is no hydronephrosis. Abdominal aorta is normal in course and caliber without aneurysm. There is no free air. There is no r etroperitoneal adenopathy. Pelvis: There are multiple dilated and fluid-filled small bowel loops proximally with decompressed di stal small bowel. Urinary bladder is unremarkable. There is small amount of free pelvic fluid. Uterus is normal in size. Left ovarian c yst measures 4 cm. Appendix is normal. Skeleton: There are no acute osseous findings. No suspicious bony lesions. IMPRESSION: Possible developing small bowel obstruction. Cholelithiasis. Electronically signed by: Laci Quiroz MD 05/21/2024 04:26 AM PILLOW FILLER RP Due to temporary technical issues with the PACS/Countdown reporting system, reports are being bella d by the in-house radiologist without review as a courtesy to ensure prompt reporting the interpreting radiologist is fully responsible for the content of the report. Transcribed Date/Time: 05/21/2024 5:17 AM
[2024-05-21] MEDS: NA CHLORIDE 0.9% 1,000 ML IV SCH (06:00)
[2024-05-21 06:56] LABS: Sqamous Epithelial <5 /HPF (None Seen); Urine Bacteria None Seen /HPF (<20); Urine Bilirubin NEGATIVE (Negative); Urine Blood Negative (Negative); Urine Clarity Clear (Clear); Urine Color Light-Yellow (Yellow); Urine Culture Reflex Order NOT NEEDED; Urine Glucose NEGATIVE (Negative); Urine Ketones 2+ (Negative); Urine Microscopic Reflex YN ORDER UMIC; Urine Mucus Slight /HPF (None Seen); Urine Nitrite NEGATIVE (Negative); Urine Protein TRACE (Negative); Urine RBC None Seen /HPF (None Seen); Urine Urobilinogen Normal (Normal); Urine WBC <5 /HPF (<5); Urine pH 7.5 (5.0-7.0)
[2024-05-21 06:58] VITALS: BMI 46.9
[2024-05-21 07:10] LABS: Specific Gravity > 1.030 (1.005-1.030)
[2024-05-21] MEDS: PANTOPRAZOLE 40 MG INJ IVP SCH (08:50)
--- NOTE | 2024-05-21 11:44 | P.PN ---
Date of Service: 05/21/24 Subjective: reports forceful dry heaving/vomiting at home last time vomited at home had small amount of blood no further vomiting since arrival herej abdominal pain improved after IV pain medication, but not resolved ROS: 10 point ROS as noted above, otherwise negative Physical Exam: GEN: Alert, oriented, NAD CV: Regular rate and rhythm, no edema Pulm: Nonlabored respirations on room air, clear bilaterally ABD: soft, moderate tenderness in epigastric and RUQ Neuro: Normal speech, normal affect Problem List: Acute cholecystitis with cholelithiasis Hematemesis on admission presents with worsening abdominal pain associate with nausea/vomiting. Abdominal pain similar to past cholelithiasis episodes per patient. She reports hematemesis at home prior to admission. Reportedly threw up bright red blood - small amount at home, no further episodes since arrival to ER Dr. Rice planning for possible lap kristyn; unsure on timing given hematemesis Dr. Giron, GI consulted to further eval - if warrants EGD or not at this time continue empiric IV zosyn (05/21-) blood cx (05/21): pending continue IV fluids IV protonix BID pain control NPO for now VTE: SCD for now Code: Full Dispo: Home Time Spent Managing Pts Care (In Minutes): 55
[2024-05-21 16:12] LABS: Hematocrit 35.3 % (36.0-45.0); Hemoglobin 11.8 g/dL (12.0-15.0)
--- NOTE | 2024-05-21 18:39 | CON ---
Date of Consultation: 05/21/2024 Diagnoses: Acute cholecystitis, nausea, and hematemesis. History Of Present Illness: This is the case of a 39-year-old patient who was developing abdominal p ains yesterday. She had some greasy food in the morning, then she had a snack in the afternoon. She states after that developed epigastric, right upper quadrant pain radiating to the back. She has be en having this issue for the last few months, but at this time it got too bad and she came to the ER after found to have vomiting and then she thinks she saw some blood in the vomit too. The patient wa s admitted for evaluation of the gallbladder and GI for the hematemesis. She denies any dysuria, hem aturia, hematochezia, melena. Denies any recent traveling out of the country. Denies any family mem carlito sick at home. Allergies: NONE. Social History: She does not smoke. She does not drink alcohol. Family History: Morbid obesity. Review of Systems: See above. Physical Examination: Vital Signs: Reviewed. General: The patient is awake and alert. HEENT: Pupils are equal and reactive. Anicteric. Neck: Supple. Chest: Clear. Heart: S1, S2. Abdomen: Epigastric, right upper quadrant pain with Grace sign positive. The rest of the abdomen i s soft and depressible. No guarding. No rebound. Breasts: Deferred. Pelvic: Deferred. Rectal: Deferred. Extremities: Good capillary refill. Neurologic: Cranial nerves 2 through 12 grossly within normal limits. Laboratory Data: WBC count is 14.7, hemoglobin of 12.9, and platelets 330. Potassium is 4.2, BUN is 19, glucose 142, total bilirubin of 0.7. CAT scan of the abdomen and pelvis and ultrasound read by Dr. Horner as cholelithiasis. There are multiple fluid levels in the small bowel, cannot rule out b owel obstruction. Left ovarian cyst and obviously cholelithiasis. The abdominal ultrasound shows ex tensive cholelithiasis with positive sonographic Grace sign. Gallbladder is diffusely filled with g allstones. Assessment: This is a 39-year-old patient with epigastric, right upper quadrant pain, Grace sign po sitive. Clinical symptoms of cholecystitis. Also shows extensive cholelithiasis now. She comes wit h also an ileus versus bowel obstruction versus also hematemesis, so the GI consults are in place to see if there is anything else have to be done other than the gallbladder. I explained to her that th is epigastric, right upper quadrant pain, although suspicious for gallbladder and also have extensive cholelithiasis. We still have to be careful and make sure that we get the GI advice and make sure t here is no other concurrent pathology. In the meantime, she preferred obviously to have a gallbladde r removed while she is admitted, so we explained the benefits, alternatives, and risks of laparoscopi c possible open cholecystectomy, which include, but not limited to infection, bleeding, damage to adj acent structures, anesthesia complication, choledocholithiasis, bile leak, pancreatitis, OH, and deat h. She also understands this may not relieve her symptoms. She might need more than one surgical in tervention. She understood. We will see how the GI consult goes and then proceed accordingly. SALBADOR/DANIE Voice ID: [id number] Report ID: [id number]
[2024-05-22 06:18] LABS: Absolute Eosinophils 0.1 K/uL (0-0.5); Absolute Lymphocytes (CBC) 1.8 K/uL (0.7-4.9); Absolute Monocytes 0.4 K/uL (0.1-1.3); Basophils % 0.3 % (0-1.3); Eosinophils % 1.9 % (0-4.4); Hematocrit 32.3 % (36.0-45.0); Hemoglobin 10.6 g/dL (12.0-15.0); Lymphocytes % 28.6 % (15.3-44.8); MCH 27.6 pg (27.0-35.0); MCHC 32.9 g/dL (32.0-36.0); MPV 8.9 fL (7.6-11.3); Monocytes % 6.9 % (3.3-12.3); Neutrophils % 62.3 % (41.7-73.7); Nucleated Red Blood Cells % 0.2 % (0-0); Platelets 251 thou/uL (152-406); RBC Red Blood Cell Count 3.84 M/uL (3.86-4.86); Red Cell Distribution Width 14.5 % (12.1-15.2)
[2024-05-22 06:47] LABS: ALT/SGPT 15 U/L (13-56); Albumin 2.6 g/dL (3.4-5.0); Albumin/Globulin Ratio 0.8 (1.1-1.8); Alkaline Phosphatase 53 U/L (45-117); Anion Gap 7.6 mEq/L (5.0-15.0); BUN Blood Urea Nitrogen 11 mg/dL (7-18); Bicarbonate 25 mEq/L (21-32); Bilirubin Total 0.8 mg/dL (0.2-1.0); Globulin 3.1 g/dL (2.3-3.5); Glomerular Filtration Rate 111 ml/min (=/>90); Glucose Level 115 mg/dL (74-106); Potassium 3.6 mEq/L (3.5-5.1); Protein, Total 5.7 g/dL (6.4-8.2); Sodium Level 140 mEq/L (136-145)
[2024-05-22 06:48] LABS: AST/SGOT < 10 U/L (15-37)
--- NOTE | 2024-05-22 09:52 | P.PN ---
Date of Service: 05/22/24 Subjective: abdominal pain improved no further episodes of nausea/vomiting EGD today no acute events overnight afebrile ROS: 10 point ROS as noted above, otherwise negative Physical Exam: GEN: Alert, oriented, NAD CV: Regular rate and rhythm, no edema Pulm: Nonlabored respirations on room air, clear bilaterally ABD: soft, minimal tenderness in epigastric and RUQ Problem List: Acute cholecystitis with cholelithiasis Hematemesis on admission presents with worsening abdominal pain associate with nausea/vomiting. Abdominal pain similar to past cholelithiasis episodes per patient. She reports hematemesis at home prior to admission. Reportedly threw up bright red blood - small amount at home, no further episodes since arrival to ER continue empiric IV zosyn (05/21-) blood cx (05/21): NGTD continue IV fluids IV protonix BID pain control Dr. Giron, GI consulted - recommending EGD NPO for tentative EGD today Dr. Rice consulted. tentative plan for lap kristyn tomorrow morning; pending EGD results Abdominal pain improved. No further episodes of n/v/d VTE: SCD for now Code: Full Dispo: Home, ~1-2 todays pending EGD/lap kristyn, recovery Time Spent Managing Pts Care (In Minutes): 55
[2024-05-22] MEDS ORDERED: LIDOCAINE 1% MPF 5 ML VIAL ONE (12:02)
[2024-05-22] MEDS ORDERED: propofoL 200 MG/20 ML VIAL IV ONE ×2 (12:02)
[2024-05-22] MEDS: POTASSIUM 25 MEQ EFFERV TAB PO ONE (13:50)
--- NOTE | 2024-05-22 16:19 | PN ---
Date of Progress Note: 05/22/2024 Diagnosis: Acute cholecystitis. Subjective: The patient is doing better. She is going for EGD today. Dr. Giron is working on the case due to an episode of hematemesis. Objective: Chest: Clear. Abdomen: Soft and depressible. Right upper quadrant tenderness. Lower abdomen is soft and depressi ble. Extremities: Good capillary refill. Laboratory Data: Blood work shows a WBC count of 6.4 with a total bilirubin of 0.8. Assessment: 39-year-old patient with acute cholecystitis, symptomatic cholelithiasis. Still having tenderness, going for EGD today to rule out any other concurrent problems, but from the surgical doris dpoint, she still want to proceed with laparoscopic, possible open cholecystectomy with benefits, alt ernatives, and risks including, but not limited to, infection, bleeding, damage to adjacent structure s, anesthesia complication, choledocholithiasis, bile leak, pancreatitis, [place], and even . She al so understands this may not relieve any symptoms. She might need more than one surgical intervention . She understood, signed a consent. SALBADOR/DANIE Voice ID: [id number] Report ID: [id number]
[2024-05-22] MEDS: ACETAMINOPHEN 325 MG TABLET PO PRN (18:14)
--- NOTE | 2024-05-22 18:59 | CON ---
Date of Consultation: 05/22/2024 Reason For Consultation: Hematemesis x2 and acute cholecystitis. History Of Present Illness: This patient is a 39-year-old female with history of endometrio sis, obesity, , tubal ligation. The patient is admitted to the hospital due to midepigastri c pain and hematemesis. The patient states she has had 2 events of hematemesis that are unexplained. It appears patient first started having midepigastric pain with nausea, vomiting, and then the pain 10/10 and currently down to 0/10 on pain medicines, but with the emesis and retching, started to hav ing this hematemesis events x2. Past Medical History: Significant for endometriosis, obesity, , tubal ligation. Medications At Home: I guess is none. Allergies: NKDA. Social History: She is , 1 son, 12 years old. No tobacco, quit at the age of 26. Has occas ional alcohol. Father is alive with diabetes. Mother is alive with possible inflammatory bowel dise ase, ulcerative colitis it appears. Review of Systems: The patient has midepigastric pain, nausea, vomiting, and hematemesis. The patient denies any melena , hematochezia, hemoptysis, epistaxis, hematuria, dysuria, polydipsia, chest pain, shortness of breat h, seizure, syncope, syncope, muscle aches, joint aches, backaches, depression, anxiety. Physical Examination: Vital Signs: She is 5 feet 3 inches, 264 pounds. BMI of 46 kg/sq m. Temperature 97.6 degrees Fahre nheit, pulse 72, respirations 18, blood pressure 120/75, O2 sat 100%. HEENT: Normocephalic, atraumatic. Anicteric. Pupils equal, round, and reactive to light. Anicteri c. Oropharynx is clear. Neck: Supple. No masses. Respirations: Clear to auscultation bilaterally. Cardiac: Regular rate and rhythm. Gastrointestinal: Positive bowel sounds. Soft, nontender, and nondistended. She had midepigastric pain that was mild. No peritoneal sign. No rebound. Equivocal Grace sign. Extremities: No clubbing, cyanosis, or edema. 2+ pulses. Neuro: Alert and oriented x3. Grossly nonfocal. 5/5 motor. Sensation intact to light touch. Laboratory Data: The patient has a white count of 6.4, down from 14.7 yesterday; hemoglobin of 10.6, down from 12.9; hematocrit 32; MCV of 84; platelet count 251; polys 62%, down from 81% yesterday; ly mphocytes 29%; monocytes 7%; eosinophils 2%. Sodium 140, potassium 3.6, chloride 111, bicarb 25, BUN of 11, creatinine 0.7, glucose 115. Lactic acid 1.2, normal. Calcium 7.6. Total bilirubin 0.8, T less than 10, ALT of 15, alkaline phosphatase 63, total protein 5.7, albumin 2.6. Serum test was negative. Lipase 29. UA was 2+ ketones, otherwise negative, except slight mucus and trace protein. Ultrasound of abdomen reveals extensive cholelithiasis with positive sonographic Grace sig n and then subsequent CT scan of the abdomen revealed possible developing small bowel obstruction, ch olelithiasis. Impression: 1. Hematemesis x2 events. We will need to investigate with esophagogastroduodenoscopy. 2. Acute cholecystitis, midepigastric pain 10/10, now down to 0/10 on pain medicines and IV fluids, a nd with nausea, vomiting. No fevers, chills. Ultrasound reveals extensive gallstones in the gallbla dder and a positive Grace sign. CT abdomen reveals extensive gallstones in gallbladder with possibl e early signs of small-bowel obstruction, probably due to the inflammation from the gallbladder. 3. History of endometriosis. 4. Obesity. 5. . 6. Tubal ligation. Recommendations: 1. Proceed with EGD. 2. Continue IV fluids. 3. Keep patient n.p.o. 4. Continue p.r.n. pain medicine, antiemetics. 5. PPI therapy. 6. Laparoscopic cholecystectomy as per Surgery. WS/MODL Voice ID: [id number] Report ID: [id number]
[2024-05-23 07:06] LABS: Absolute Eosinophils 0.1 K/uL (0-0.5); Absolute Lymphocytes (CBC) 1.5 K/uL (0.7-4.9); Absolute Monocytes 0.3 K/uL (0.1-1.3); Absolute Neutrophil 3.7 K/uL (1.8-8.0); Basophils % 0.3 % (0-1.3); Eosinophils % 1.4 % (0-4.4); Hemoglobin 11.2 g/dL (12.0-15.0); MCH 27.3 pg (27.0-35.0); MCHC 32.8 g/dL (32.0-36.0); MCV 83.3 fL (80-100); MPV 8.7 fL (7.6-11.3); Monocytes % 5.6 % (3.3-12.3); Neutrophils % 65.7 % (41.7-73.7); Nucleated Red Blood Cells % 0.1 % (0-0); Platelets 277 thou/uL (152-406); RBC Red Blood Cell Count 4.09 M/uL (3.86-4.86); Red Cell Distribution Width 14.1 % (12.1-15.2)
[2024-05-23] MEDS ORDERED: propofoL 200 MG/20 ML VIAL IV ONE (07:22)
[2024-05-23] MEDS ORDERED: LIDOCAINE 2% MPF 5 ML VIAL ONE (07:22)
[2024-05-23] MEDS ORDERED: MIDAZOLAM HCL 2 MG/2 ML INJ ONE (07:23)
[2024-05-23] MEDS ORDERED: ROCURONIUM 50 MG/5 ML VIAL IV ONE (07:23)
[2024-05-23] MEDS ORDERED: FENTANYL CITR 100 MCG/2 ML ONE ×2 (07:23→08:05)
[2024-05-23] MEDS ORDERED: ONDANSETRON 4 MG/2 ML VIAL ONE (07:29)
[2024-05-23 07:57] LABS: Albumin/Globulin Ratio 0.9 (1.1-1.8); Anion Gap 8.3 mEq/L (5.0-15.0); Globulin 3.4 g/dL (2.3-3.5); Potassium 3.3 mEq/L (3.5-5.1); Protein, Total 6.4 g/dL (6.4-8.2)
[2024-05-23] MEDS ORDERED: dexAMETHasone 4 MG/ML VIAL ONE (07:57)
[2024-05-23] MEDS ORDERED: MEPERIDINE HCL 25 MG/ML SYR ONE (08:14)
[2024-05-23] MEDS ORDERED: KETOROLAC 30 MG/ML INJ ONE (08:14)
[2024-05-23] MEDS ORDERED: Mastisol Adhesive Liq ONE (08:36)
--- NOTE | 2024-05-23 09:01 | P.BOP ---
Preoperative diagnosis: acute cholecystitis, symptomatic cholelithiasis Postoperative diagnosis: same Primary procedure: Laparoscopic cholecystectomy Estimated blood loss: <10cc Specimen: gb Findings: as above Anesthesia: General Complications: None Transferred to: Recovery Room Condition: Good
[2024-05-23] MEDS ORDERED: SUGAMMADEX SODIUM 200 MG/2 ML VIAL IV ONE (09:02)
[2024-05-23 09:25] VITALS: O2SAT 97
--- NOTE | 2024-05-23 09:55 | OP ---
Date of Procedure: 05/23/2024 Surgeon: Prince Rice MD Preoperative Diagnoses: Acute cholecystitis, symptomatic cholelithiasis. Postoperative Diagnoses: Acute cholecystitis, symptomatic cholelithiasis. Procedure: Laparoscopic cholecystectomy. Estimated Blood Loss: Less than 10 cc. Specimen: Gallbladder. Anesthesia: General plus local. Complications: None. Indications: This is a case of a female, who came to us with hematemesis and cholecystitis. Dr. Sang zafar yesterday did an EGD, and gave us the clearance to proceed with the cholecystectomy with benefits , alternatives, and risks including, but not limited to, infection, bleeding, damage to adjacent stru ctures, anesthesia complication, choledocholithiasis, bile leak, pancreatitis, [place], and even . S he also understands this may not relieve any symptoms. She might need more than one surgical interve ntion. She understood, signed a consent. Description Of Procedure: The patient was brought to the operating room, placed in supine position. Anesthesia was induced without complication. Abdominal area was prepped and draped in the usual asaf rile fashion. Marcaine 0.5% was injected for local anesthetic followed by sharp incision of the skin in the supraumbilical region. Patient had an incision there already. Incision was carried down to fascia, which was opened under direct vision. Peritoneum was encountered, opened under direct vision . Vicryl #1 placed inside the fascia. Amos trocar was carefully introduced. Pneumoperitoneum was obtained. I placed three more trocars, 5 mm each one of them, one in the epigastric area, two in th e right upper quadrant using the same technique, which consisted of local anesthetic, sharp incision of the skin, introduction of the trocars under direct vision. This allowed me to put a grasper in th e fundus of the gallbladder, another grasper in the infundibulum, retracting the gallbladder in the i nferolateral fashion exposing the triangle of Calot, obtaining critical view. Cystic duct and cystic artery were clearly isolated and freed circumferentially, and a connection between those and the gal lbladder were clearly identified. I proceeded to ligate those by using at least 3 clips proximal, 1 clip distal, ligation in the middle. Same was done with the cystic artery. No bile leak. No bleedi ng. The gallbladder was removed from the liver using Bovie cauterizer and removed from the abdominal cavity using an EndoCatch through the umbilical incision. The area was inspected once again. No bi le leak. No bleeding. At that moment, I proceeded to remove the trocars under direct vision. Defla juliana the pneumoperitoneum. Closed the fascia with #1 Vicryl. Irrigated subcutaneous tissue, closed t hat with 3-0 chromic and the skin with jhonny. Sponge counts and instrument counts were correct. P atient tolerated the procedure well. Patient was sent to Recovery in stable condition. SALBADOR/DANIE Voice ID: [id number] Report ID: [id number]
[2024-05-23] MEDS: POTASSIUM 25 MEQ EFFERV TAB PO ONE (13:03)
[2024-05-23 13:12] VITALS: BP 157/87; TEMP 98.2
== END 2024-05-23 17:53 | disposition home or self-care (01) | DRG 417 ==
LOC: ER 01:42 → ERHOLD 05:05 → 4TH 07:15
PROVIDERS: ADMIT Family Medicine; ATTEND Hospitalist
PROC: 0DB68ZX Excision of Stomach, Via Natural or Artificial Opening Endoscopic, Diagnostic (ICD-10-PCS; 2024-05-21)
PROC: 0FT44ZZ Resection of Gallbladder, Percutaneous Endoscopic Approach (ICD-10-PCS; principal; 2024-05-23 07:38)
DX: K80.00 Calculus of gallbladder with acute cholecystitis without obstruction (principal); K22.6 Gastro-esophageal laceration-hemorrhage syndrome; K29.71 Gastritis, unspecified, with bleeding; Z68.42 Body mass index [BMI] 45.0-49.9, adult; E66.9 Obesity, unspecified
CPT/HCPCS: 36415; 74177; 76705; 80053; 81001; 83605; 83690; 83735; 84703; 85014; 85018; 85025; 87040; 88304; 88305; 88312; 94010; 96361; 96365; 96375; 99284; J1100; J1790; J2003; J2175; J2250; J2405; J2470; J2543; J2704; J2765; J3010; J7030; Q9967